=== PATIENT | female | born 1995 | race African-American/Black ===

== ENCOUNTER 2019-11-01 08:08 | Emergency (ER) | payer OTHER ==
[~2019-11-01] VITALS: Ht 162.6 cm; Wt 74.8 kg
[2019-11-01 08:08] VITALS: BP_SYST 122
--- NOTE | 2019-11-01 08:08 | NUR ---
BROUGHT BACK TO BED #7 AND TRIAGED. REPORT GIVEN TO ALEXIS
--- NOTE | 2019-11-01 08:15 | NUR ---
Patient arrived via POV, AAOx4, and ambulatory with steady gait. Patient accompanied by family. Patient c/c of cough, sore throat x 3 days. Patient states she has lost her voice. Patient has no signs of respiratory distress. Will continue to follow up and monitor.
--- NOTE | 2019-11-01 08:16 | NUR ---
ER at bedside examining patient.
[2019-11-01 09:01] VITALS: BP_SYST 120
--- NOTE | 2019-11-01 09:01 | NUR ---
Patient given written and verbal discharge instructions and verbalizes understanding. ER MD discussed with patient the results and treatment provided. Patient in stable condition. ID arm band removed, kept per patient request. Rx of Tylenol, Zithromax, and Loziflur given. Patient educated on pain management and to follow up with PMD. Pain Scale 2/10 throat pain. Opportunity for questions provided and answered. Medication side effect fact sheet provided.
== END 2019-11-01 09:01 | disposition home or self-care (01) ==
LOC: SED 08:08
DX: J02.9 Acute pharyngitis, unspecified (principal); R05 Cough
CPT/HCPCS: 36415; 86403; 87081; 99283

== ENCOUNTER 2022-12-14 12:08 | Emergency (ER) | payer OTHER ==
[~2022-12-14] VITALS: Ht 162.6 cm; Wt 74.8 kg
[2022-12-14 12:12] VITALS: BP_SYST 139
--- NOTE | 2022-12-14 12:25 | NUR ---
Patient to ER bed 8 to gown for evaluation. Side rails up.
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
--- NOTE | 2022-12-14 12:27 | NUR ---
ER at bedside examining patient.
[2022-12-14 12:33] VITALS: BP_SYST 139
[2022-12-14] MEDS ORDERED: KETOROLAC TROMETHAMINE 60 MG/2 ML VIAL IM ONE (12:45)
--- NOTE | 2022-12-14 13:00 | NUR ---
PT MEDICATED TOLERATED WELL.
[2022-12-14] MEDS ORDERED: IBUP-1971 PO (13:05)
--- NOTE | 2022-12-14 13:34 | NUR ---
Patient given written and verbal discharge instructions and verbalizes understanding. ER MD discussed with patient the results and treatment provided. Patient in stable condition. ID arm band removed. Rx of MOTRIN given. Patient educated on pain management and to follow up with PMD. Pain Scale 3. Opportunity for questions provided and answered. Medication side effect fact sheet provided.
== END 2022-12-14 13:34 | disposition home or self-care (01) ==
LOC: SED 12:08
DX: S13.4XXA Sprain of ligaments of cervical spine, initial encounter (principal); Z79.899 Other long term (current) drug therapy; V89.2XXA Person injured in unspecified motor-vehicle accident, traffic, initial encounter; Y93.89 Activity, other specified; Y92.89 Other specified places as the place of occurrence of the external cause; Y99.8 Other external cause status
CPT/HCPCS: 99283; 96372; J1885

== ENCOUNTER 2024-04-04 20:24 | Emergency (ER) | payer BC, OTHER ==
[~2024-04-04] VITALS: Ht 162.6 cm; Wt 72.6 kg
[~2024-04-04 20:24] MED LIST: IBUP-1971 PO
[2024-04-04 20:32] VITALS: BP_SYST 128; PULSE 72; RESP 18; TEMP 98.2; O2SAT 99
[2024-04-04] MEDS ORDERED: LIDOCAINE/EPI 1% 1:100000 20 ML VIAL INJ ONE (20:45)
[2024-04-04] MEDS ORDERED: NAPR-690 PO (21:02)
[2024-04-04] MEDS ORDERED: CEPH-548 PO (21:02)
== END 2024-04-04 21:05 | disposition home or self-care (01) ==
LOC: SED 20:24
DX: L73.2 Hidradenitis suppurativa (principal); J45.909 Unspecified asthma, uncomplicated; Z98.890 Other specified postprocedural states; Z79.899 Other long term (current) drug therapy; Z79.2 Long term (current) use of antibiotics
CPT/HCPCS: 99284